=== PATIENT | female | born 2000 | race Caucasian/White ===

== ENCOUNTER 2018-06-25 04:04 | Emergency (ER) | payer BC ==
[~2018-06-25] VITALS: Ht 175.3 cm; Wt 129.0 kg
[2018-06-25 04:09] VITALS: BP 144/77
--- NOTE | 2018-06-25 05:23 | NUR ---
STRAIGHT CATH PERFORMED BY DIANE GONZALEZ. UA WALKED TO LAB. PT TO [facility] NOW.
[2018-06-25 05:35] LABS: MICROSCOPIC AUTO
[2018-06-25 05:38] LABS: CULTURE INDICATED? NO
[2018-06-25 06:01] LABS: BASOPHILS # (AUTO) 0.06 x10^3/uL (0-0.3); BASOPHILS % (AUTO) 1 % (0-1); EOSINOPHILS # (AUTO) 0.15 x10^3/uL (0-0.8); EOSINOPHILS % (AUTO) 2 % (1-7); LYMPHOCYTES # (AUTO) 2.23 x10^3/uL (1-6.1); LYMPHOCYTES % (AUTO) 24 % (22-44); MD NO; MEAN CORPUSCULAR HEMOGLOBIN 27.1 pg (27.0-34.8); MEAN CORPUSCULAR HGB CONC 32.9 g/dL (32.4-35.8); MEAN CORPUSCULAR VOLUME 82.4 fL (80-100); MEAN PLATELET VOLUME 6.8 fL (7.4-10.4); MONOCYTES # (AUTO) 0.92 x10^3/uL (0-1.4); MONOCYTES % (AUTO) 10 % (2-9); NEUTROPHILS # (AUTO) 6.11 x10^3/uL (1.8-8.0); NEUTROPHILS % (AUTO) 65 % (42-75); PLATELET COUNT 355 x10^3/uL (130-400); RED BLOOD COUNT 4.46 x10^6/uL (3.82-5.3); RED CELL DISTRIBUTION WIDTH 14.9 % (9.6-15.2)
[2018-06-25 06:10] LABS: ALANINE AMINOTRANSFERASE 19 U/L (12-78); ALBUMIN 3.6 g/dL (3.4-5.0); ANION GAP 5 mmol/L (5-15); CALCIUM 8.6 mg/dL (8.5-10.1); CHLORIDE 111 mmol/L (98-107)
[2018-06-25 06:14] LABS: ALKALINE PHOSPHATASE 69 U/L (45-117); BILIRUBIN,TOTAL 0.4 mg/dL (0.2-1.0); TOTAL PROTEIN 7.6 g/dL (6.4-8.2)
[2018-06-25] MEDS ORDERED: HYDROcodone/APAP 5/325 TABLET ONE (06:27)
[2018-06-25] MEDS ORDERED: HYDROcodone/APAP 5/325 TABLET PO ONE (06:30)
== END 2018-06-25 06:46 | disposition home or self-care (01) ==
LOC: ED 04:17
DX: N83.291 Other ovarian cyst, right side (principal)
CPT/HCPCS: 36415; 76830; 80053; 81001; 84703; 85025; 99284

== ENCOUNTER 2021-01-16 12:24 | Emergency (ER) | payer MEDICAID ==
[~2021-01-16] VITALS: Ht 175.3 cm; Wt 146.0 kg
[2021-01-16 12:50] VITALS: BP 138/87
[2021-01-16 13:17] LABS: BASOPHILS % (AUTO) 1 % (0-1); EOSINOPHILS % (AUTO) 1 % (1-7); LYMPHOCYTES % (AUTO) 27 % (22-44); MEAN CORPUSCULAR HGB CONC 33.8 g/dL (32.4-35.8); MEAN PLATELET VOLUME 6.4 fL (7.4-10.4); MONOCYTES % (AUTO) 8 % (2-9); NEUTROPHILS % (AUTO) 63 % (42-75); PLATELET COUNT 341 x10^3/uL (130-400); RED BLOOD COUNT 4.77 x10^6/uL (3.82-5.3); RED CELL DISTRIBUTION WIDTH 13.3 % (9.6-15.2)
[2021-01-16 13:28] LABS: ALBUMIN 3.4 g/dL (3.4-5.0); ANION GAP 3 mmol/L (5-15); CALCIUM 9.2 mg/dL (8.5-10.1); CHLORIDE 106 mmol/L (98-107)
[2021-01-16 13:35] LABS: CREATININE 0.74 mg/dL (0.55-1.02)
[2021-01-16 13:36] LABS: ALANINE AMINOTRANSFERASE 25 U/L (12-78); ALKALINE PHOSPHATASE 75 U/L (45-117); BILIRUBIN,TOTAL 0.3 mg/dL (0.2-1.0); TOTAL PROTEIN 8.1 g/dL (6.4-8.2)
--- NOTE | 2021-01-17 01:13 | NUR ---
NA X 1 WHEN CALLED FOR ROOM
--- NOTE | 2021-01-17 01:30 | NUR ---
NILX2
--- NOTE | 2021-01-17 01:53 | NUR ---
NILX3
--- NOTE | 2021-01-17 01:53 | NUR ---
NA X 3
== END 2021-01-17 01:54 | disposition left against medical advice (07) ==
LOC: ED 13:00
DX: R10.31 Right lower quadrant pain (principal)
CPT/HCPCS: 36415; 76830; 80053; 84703; 85025; 99284